=== PATIENT | female | born 1990 | race Caucasian/White ===

== ENCOUNTER 2022-02-28 18:28 | Inpatient (IN) | payer OTHER ==
[2022-02-28] MEDS ORDERED: Butorphanol Tartrate 1 MG/ML VIAL SLOW IVP PRN (18:35)
[2022-02-28] MEDS ORDERED: Ondansetron PF 4 MG/2 ML Vial IVP PRN ×2 (18:35→18:54)
[2022-02-28] MEDS ORDERED: Lidocaine 1% (PF) 30 ML VIAL SC PRN (18:35)
[2022-02-28] MEDS ORDERED: Ibuprofen 800 MG TAB PO PRN (18:35)
[2022-02-28] MEDS ORDERED: Promethazine HCl 25 MG/ML VIAL IM PRN ×2 (18:35→18:54)
[2022-02-28] MEDS ORDERED: hydrALAZINE 20 MG/ML VIAL SLOW IVP PRN (18:35)
[2022-02-28] MEDS ORDERED: HYDROcodone/Acetaminophen 5/325 mg Tablet PO PRN ×2 (18:35→22:38)
[2022-02-28] MEDS ORDERED: NS w/ Oxytocin 30 units 500 ML IV SCH (18:45)
[2022-02-28] MEDS ORDERED: Lactated Ringer's 1,000 ML IV SCH ×2 (18:45)
[2022-02-28] MEDS ORDERED: Fentanyl 2 mcg/Bup 0.1% Cadd 100 ML ONE (18:48)
[2022-02-28] MEDS ORDERED: Fentanyl 100 MCG/2 ML VIAL ONE (18:53)
[2022-02-28] MEDS ORDERED: ePHEDrine Sulfate 50 MG/10 ML VIAL SLOW IVP PRN (18:54)
[2022-02-28] MEDS ORDERED: Naloxone HCl 0.4 mg/ml Vial IVP PRN ×2 (18:54)
[2022-02-28] MEDS ORDERED: Acetaminophen 325 MG TAB PO PRN (18:54)
[2022-02-28] MEDS ORDERED: diphenhydrAMINE 50 MG/ML VIAL IVP PRN (18:54)
[2022-02-28] MEDS ORDERED: Moisturizing Cream (Eucerin) 113 GM JAR TOP PRN (18:54)
[2022-02-28 18:58] VITALS: BMI 27.9
[2022-02-28] MEDS ORDERED: Communication Order-Pharmacy FS SCH (19:00)
[2022-02-28] MEDS ORDERED: Fentanyl 2 mcg/Bupivacaine 0.1% Cassette 100 ML EPIDURAL SCH (19:00)
[2022-02-28 19:09] LABS: Hemoglobin 11.3 g/dL (12.0-15.5); Mean Corpuscular Hemoglobin 28.3 pg (27.0-33.0); Mean Platelet Volume 12.2 fl (7.4-10.4); Platelet Count 222 10x3/uL (150-450); RBC Distribution Width 12.7 % (11.5-14.5); White Blood Cell (WBC) Count 12.7 10x3/uL (3.5-10.5)
[2022-02-28] MEDS ORDERED: Lactated Ringer's 500 ML IV PRN (19:17)
[2022-02-28 19:42] LABS: Hep B Surf Ag Non-Reactive S/CO (NonReactive); Syphilis Antibody Nonreactive (Nonreactive); Syphilis Antibody Index 0.06 S/CO (<1.00 Non-Reactive)
[2022-02-28 20:25] LABS: HBSAg Index 0.24 S/CO (0-0.99)
[2022-02-28 21:09] LABS: HIV (1/2) Antibody/Antigen Non-Reactive (NonReactive)
[2022-02-28 21:16] LABS: Amphetamine Not Detected (NotDetected); Barbiturates Screen Not Detected (NotDetected); Benzodiazepine Screen Not Detected (NotDetected); Cocaine Metabolite Screen Not Detected (NotDetected); Methadone Not Detected (NotDetected); Methamphetamine Not Detected (NotDetected); Opiate Screen Not Detected (NotDetected); Oxycodone Screen Not Detected (NotDetected); Phencyclidine (PCP) Not Detected (NotDetected); THC/Cannabinoid Screen Not Detected (NotDetected); Tricyclic Screen Not Detected (NotDetected)
[2022-02-28 21:57] LABS: SARS-CoV-2 NAA Rapid Test Not Detected (NotDetected)
[2022-03-01] MEDS ORDERED: Milk Of Magnesia 30 ML UDCUP PO PRN (02:20)
[2022-03-01] MEDS ORDERED: Bisacodyl 10 MG SUPP PR PRN (02:20)
[2022-03-01] MEDS ORDERED: Benzocaine-Menthol 82.5 ML CAN TOP PRN (02:20)
[2022-03-01] MEDS ORDERED: HYDROcodone/Acetaminophen 5/325 mg Tablet PO PRN (03:35)
[2022-03-01] MEDS: HYDROcodone/Acetaminophen 5/325 mg Tablet PO PRN ×5 (03:47→23:44)
[2022-03-01] MEDS: Ibuprofen 800 MG TAB PO SCH ×3 (06:33→21:25)
[2022-03-01] MEDS: Ferrous Sulfate 325 MG TAB PO SCH ×2 (08:03→18:25)
[2022-03-01] MEDS: Docusate 100 MG CAP PO SCH ×2 (08:42→21:25)
[2022-03-01 20:32] VITALS: TEMP 98
[2022-03-02] MEDS: Ibuprofen 800 MG TAB PO SCH ×2 (05:15→12:20)
[2022-03-02] MEDS: HYDROcodone/Acetaminophen 5/325 mg Tablet PO PRN ×2 (06:33→10:44)
[2022-03-02] MEDS: Ferrous Sulfate 325 MG TAB PO SCH (07:21)
[2022-03-02 08:11] VITALS: BP 136/70
[2022-03-02] MEDS: Docusate 100 MG CAP PO SCH (08:14)
== END 2022-03-02 12:40 | disposition home or self-care (01) | DRG 807 ==
LOC: CSHLD 18:28 → CSHPP 03-01 06:45
PROVIDERS: ADMIT Obstetrics & Gynecology; ATTEND Obstetrics & Gynecology
PROC: 10E0XZZ Delivery of Products of Conception, External Approach (ICD-10-PCS; principal; 2022-02-28)
DX: O80 Encounter for full-term uncomplicated delivery (principal); Z37.0 Single live birth; Z3A.39 39 weeks gestation of pregnancy; Z20.822 Contact with and (suspected) exposure to COVID-19
CPT/HCPCS: 80306; 85027; 86762; 86780; 86850; 86900; 86901; 87340; 87389; 99285; J2590; U0002